=== PATIENT | male | born 1980 | race American Indian/Alaskan Native ===

== ENCOUNTER 2025-04-16 18:42 | Emergency (ER) | payer SELFPAY ==
[2025-04-16 19:48] LABS: BASOPHILS PERCENT AUTO 0.3 % (0.0-1.0); EOSINOPHILS PERCENT AUTO 2.1 % (1.0-3.0); LYMPHOCYTES PERCENT AUTO 29.0 % (20.5-50.1); MONOCYTES PERCENT AUTO 8.5 % (2-8); NEUTROPHILS PERCENT AUTO 60.1 % (42.2-75.2); PLATELET COUNT,PLT 289 10^3/uL (150-450); RED BLOOD CELL COUNT 5.30 10^6/uL (4.6-6.2); WHITE BLOOD CELL COUNT,WBC 8.9 10^3/uL (5.0-10.0)
[2025-04-16] MEDS: Ketorolac 30 MG/ML SDV IM ONE (19:58)
[2025-04-16 20:09] LABS: A/G RATIO 0.9; ALANINE AMINOTRANSFERASE,ALT 31.0 U/L (16-63); ASPARTATE AMNIOTRANSFERASE,AST 26.0 U/L (15-37); BILIRUBIN TOTAL 0.3 mg/dL (0.2-1.0); BLOOD UREA NITROGEN,BUN 14.0 mg/dL (7-18); CARBON DIOXIDE,CO2 30.0 mmol/L (21-32); CHLORIDE,CL 103.0 mmol/L (98-107); CREATININE 0.96 mg/dL (0.70-1.30); EST CRCL DRUG DOSING (CG) 108.9 mL/min; ESTIMATED GFR 101.0 mL/min (>=60); GLUCOSE RANDOM 96.0 mg/dL (70-99); POTASSIUM,K 4.5 mmol/L (3.5-5.1); PROTEIN TOTAL,TP 7.8 g/dL (6.4-8.2); SODIUM,NA 142.0 mmol/L (136-145)
== END 2025-04-16 21:24 | disposition home or self-care (01) ==
LOC: DL.ED 18:42
DX: M54.41 Lumbago with sciatica, right side (principal)
CPT/HCPCS: 72100; 80053; 83735; 85025; 86787; 96372; 99284; J1885

== ENCOUNTER 2025-05-28 17:16 | Emergency (ER) | payer MEDICAID | END 2025-05-28 17:55 | disposition home or self-care (01) | LOC: DL.ED 17:16 | DX: M77.02 Medial epicondylitis, left elbow (principal); M77.01 Medial epicondylitis, right elbow | CPT/HCPCS: 99283 ==